=== PATIENT | female | born 1950 | race Caucasian/White ===

== ENCOUNTER 2016-10-14 10:05 | Outpatient (CLI) | payer MEDICARE, OTHER | END 2016-10-14 10:06 | disposition home or self-care (01) | DX: Z13.820 Encounter for screening for osteoporosis (principal); M85.89 Other specified disorders of bone density and structure, multiple sites; Z78.0 Asymptomatic menopausal state ==

== ENCOUNTER 2016-10-18 08:00 | Outpatient (CLI) | payer MEDICARE, OTHER | END 2016-10-18 08:01 | disposition home or self-care (01) | DX: Z01.812 Encounter for preprocedural laboratory examination (principal); Z79.899 Other long term (current) drug therapy ==

== ENCOUNTER 2016-10-25 12:41 | Outpatient (CLI) | payer MEDICARE, OTHER ==
[2016-10-25] MEDS ORDERED: IOPAMIDOL-300 100 ML VIAL IVP ONE (13:34)
== END 2016-10-25 12:42 | disposition home or self-care (01) ==
DX: R07.9 Chest pain, unspecified (principal); Z82.49 Family history of ischemic heart disease and other diseases of the circulatory system
CPT/HCPCS: 71275; 74175; Q9967

== ENCOUNTER 2017-10-20 08:00 | Outpatient (CLI) | payer MEDICARE, OTHER ==
[2017-10-20 12:34] LABS: BASOPHILS # (AUTO) 0.1 10^3/uL (0.0-0.1); BASOPHILS % (AUTO) 1.1 %; EOSINOPHILS # (AUTO) 0.3 10^3/uL (0.0-0.7); EOSINOPHILS % (AUTO) 6.3 %; HGB - HEMOGLOBIN 13.1 g/dL (12.0-16.0); LYMPHOCYTES # (AUTO) 2.5 10^3/uL (1.5-3.5); LYMPHOCYTES % (AUTO) 52.7 %; MEAN CORPUSCULAR HEMOGLOBIN 31.3 pg (27.0-31.0); MEAN CORPUSCULAR HGB CONC 34.1 g/dL (32.0-36.0); MEAN CORPUSCULAR VOLUME 91.7 fL (81.0-99.0); MEAN PLATELET VOLUME 8.7 fL (7.9-10.8); MONOCYTES # (AUTO) 0.3 10^3/uL (0.0-1.0); MONOCYTES % (AUTO) 6.7 %; NEUTROPHILS # (AUTO) 1.6 10^3/uL (1.5-6.6); NEUTROPHILS % (AUTO) 33.2 %; PLT - PLATELET COUNT 240 10^3/uL (130-450); RED BLOOD COUNT 4.19 10^6/uL (4.20-5.40); RED CELL DISTRIBUTION WIDTH 13.3 % (12.0-15.0); WHITE BLOOD COUNT 4.8 x10^3/uL (4.8-10.8)
[2017-10-20 12:53] LABS: ALBUMIN 4.2 g/dL (3.2-5.5); ALBUMIN/GLOBULIN RATIO 1.6 (1.0-2.2); BILIRUBIN,TOTAL 0.5 mg/dL (0.2-1.0); CALCIUM 8.8 mg/dL (8.5-10.3); CREATININE 0.7 mg/dL (0.4-1.0); TOTAL PROTEIN 6.8 g/dL (6.7-8.2)
[2017-10-20 13:18] LABS: HB2 TOTAL 13.9 g/dL; HEMOGLOBIN A1C 0.51 g/dL; HEMOGLOBIN A1C % 5.5 % (4.6-6.2)
[2017-10-21 11:51] LABS: HEPATITIS C ANTIBODY NON-REACTIVE (NON-REACTIVE)
== END 2017-10-20 08:01 | disposition home or self-care (01) ==
LOC: LAB.N 08:00
PROVIDERS: ATTEND Physician Assistant Medical
DX: E55.9 Vitamin D deficiency, unspecified (principal); Z79.899 Other long term (current) drug therapy; E11.9 Type 2 diabetes mellitus without complications; F41.9 Anxiety disorder, unspecified; Z11.59 Encounter for screening for other viral diseases
CPT/HCPCS: 36415; 80053; 82306; 83036; 84443; 85025; 86803

== ENCOUNTER 2018-10-02 13:07 | Outpatient (CLI) | payer MEDICARE, OTHER ==
[2018-10-02 14:07] LABS: BASOPHILS % (AUTO) 0.9 %; EOSINOPHILS # (AUTO) 0.3 10^3/uL (0.0-0.7); EOSINOPHILS % (AUTO) 5.4 %; HGB - HEMOGLOBIN 13.7 g/dL (12.0-16.0); LYMPHOCYTES # (AUTO) 2.4 10^3/uL (1.5-3.5); LYMPHOCYTES % (AUTO) 48.7 %; MEAN CORPUSCULAR HEMOGLOBIN 31.4 pg (27.0-31.0); MEAN CORPUSCULAR HGB CONC 34.2 g/dL (32.0-36.0); MEAN PLATELET VOLUME 9.1 fL (7.9-10.8); MONOCYTES # (AUTO) 0.3 10^3/uL (0.0-1.0); NEUTROPHILS # (AUTO) 1.9 10^3/uL (1.5-6.6); PLT - PLATELET COUNT 252 10^3/uL (130-450); RED BLOOD COUNT 4.37 10^6/uL (4.20-5.40); RED CELL DISTRIBUTION WIDTH 13.5 % (12.0-15.0)
[2018-10-02 14:24] LABS: ALBUMIN 4.4 g/dL (3.2-5.5); ALBUMIN/GLOBULIN RATIO 1.8 (1.0-2.2); ALKALINE PHOSPHATASE 67 IU/L (42-121); ALT ALANINE AMINOTRANSFERASE 19 IU/L (10-60); AST ASPARTATE AMINOTRANSFERASE 23 IU/L (10-42); BILIRUBIN,TOTAL 0.6 mg/dL (0.2-1.0); BUN - BLOOD UREA NITROGEN 13 mg/dL (6-20); CALCIUM 9.1 mg/dL (8.5-10.3); CARBON DIOXIDE - CO2 26 mmol/L (21-32); CHLORIDE 106 mmol/L (101-111); CHOL/HDL RATIO 3.3 (<4.4); CHOLESTEROL 221 mg/dL; CREATININE 0.6 mg/dL (0.4-1.0); GFR - MDRD 100 (>89); GLUCOSE 99 mg/dL (70-100); HDL CHOLESTEROL 68 mg/dL; LDL CHOLESTEROL,CALCULATED 140 mg/dL; LDL/HDL RATIO 2.1 (<4.4); SODIUM 141 mmol/L (135-145); TOTAL PROTEIN 6.9 g/dL (6.7-8.2); VLDL CHOLESTEROL 13 mg/dL
[2018-10-02 14:25] LABS: HB2 TOTAL 14.9 g/dL; HEMOGLOBIN A1C 0.56 g/dL; HEMOGLOBIN A1C % 5.6 % (4.6-6.2)
== END 2018-10-02 23:59 | disposition home or self-care (01) ==
LOC: LAB.N 13:07
PROVIDERS: ATTEND Physician Assistant Medical
DX: E55.9 Vitamin D deficiency, unspecified (principal); E78.2 Mixed hyperlipidemia; E11.9 Type 2 diabetes mellitus without complications; F41.9 Anxiety disorder, unspecified; Z79.899 Other long term (current) drug therapy
CPT/HCPCS: 36415; 80053; 80061; 82306; 83036; 83721; 84443; 85025

== ENCOUNTER 2021-08-19 10:57 | Outpatient (CLI) | payer MEDICARE, OTHER | END 2021-08-19 10:58 | disposition critical access hospital (66) | LOC: EMS 10:57 | DX: I46.9 Cardiac arrest, cause unspecified (principal) | CPT/HCPCS: A0425; A0433 ==

== ENCOUNTER 2021-08-19 11:17 | Emergency (ER) | payer MEDICARE, OTHER ==
[2021-08-19 11:34] LABS: BASOPHILS % (AUTO) 0.5 %; EOSINOPHILS # (AUTO) 0.1 10^3/uL (0.0-0.7); EOSINOPHILS % (AUTO) 1.3 %; HCT - HEMATOCRIT 37.4 % (37.0-47.0); HGB - HEMOGLOBIN 11.7 g/dL (12.0-16.0); LYMPHOCYTES # (AUTO) 3.3 10^3/uL (1.5-3.5); LYMPHOCYTES % (AUTO) 42.1 %; MEAN CORPUSCULAR HEMOGLOBIN 30.7 pg (27.0-31.0); MEAN CORPUSCULAR HGB CONC 31.3 g/dL (32.0-36.0); MEAN CORPUSCULAR VOLUME 98.2 fL (81.0-99.0); MEAN PLATELET VOLUME 10.3 fL (7.9-10.8); MONOCYTES # (AUTO) 0.3 10^3/uL (0.0-1.0); MONOCYTES % (AUTO) 3.3 %; NEUTROPHILS % (AUTO) 51.5 %; PLT - PLATELET COUNT 160 10^3/uL (130-450); RED BLOOD COUNT 3.81 10^6/uL (4.20-5.40); RED CELL DISTRIBUTION WIDTH 13.4 % (12.0-15.0); WHITE BLOOD COUNT 7.8 x10^3/uL (4.8-10.8)
[2021-08-19 11:40] LABS: INR 1.4 (0.8-1.2); PT - PROTHROMBIN TIME 15.4 secs (9.9-12.6)
[2021-08-19 11:47] LABS: ALBUMIN 2.4 g/dL (3.2-5.5); ALBUMIN/GLOBULIN RATIO 1.3 (1.0-2.2); ALKALINE PHOSPHATASE 53 IU/L (42-121); ALT ALANINE AMINOTRANSFERASE 201 IU/L (10-60); AST ASPARTATE AMINOTRANSFERASE 208 IU/L (10-42); BILIRUBIN,TOTAL 0.3 mg/dL (0.2-1.0); BUN - BLOOD UREA NITROGEN 13 mg/dL (6-20); CALCIUM 6.6 mg/dL (8.5-10.3); CARBON DIOXIDE - CO2 16 mmol/L (21-32); CHLORIDE 113 mmol/L (101-111); CREATININE 0.9 mg/dL (0.4-1.0); ETOH - ETHANOL < 5.0 mg/dL; GFR - MDRD 62 (>89); GLUCOSE 264 mg/dL (70-100); LIPASE 30 U/L (22-51); MAGNESIUM 1.8 mg/dL (1.7-2.8); POTASSIUM 3.1 mmol/L (3.5-5.0); SODIUM 141 mmol/L (135-145); TOTAL PROTEIN 4.2 g/dL (6.7-8.2)
[2021-08-19] MEDS ORDERED: IOVERSOL 320 100 ML VIAL IVP ONE (11:47)
[2021-08-19] MEDS ORDERED: EPINEPHrine ABBOJECT 1 MG/10 ML SYRINGE ONE (12:00)
[2021-08-19] MEDS ORDERED: POTASSIUM CHLOR 10 MEQ/100 ML 10 MEQ/100 ML BAG IV SCH (12:00)
--- NOTE | 2021-08-19 12:12 | ED Physician Documentation ---
PD HPI CPR - Stated complaint Stated Complaint: ROSC - History obtained from History obtained from: Family (), EMS - Additional information Additional information: Patient is 71-year-old female presenting to the emergency department with return of spontaneous circulation after witnessed collapse and cardiac arrest at home earlier this morning. EMS reports arrival on scene with with CPR ongoing. They report multiple rounds of CPR. ROSC was achieved initially after 2 rounds of epinephrine however was subsequently lost and CPR reinitiated. ROSC was reachieved after 3 additional epi's. 5 total doses of epinephrine were given in the field prior to arrival. . Patient is a past medical history significant for diabetes. reports that she became emotionally bereaved this morning well talking with him, specifically mentions that was recalling something specific about a traumatic event that occurred in her childhood prior to the collapse. Denies any previous cardiac history and his but is uncertain about the rest of her medical history. . Further history is limited by the acuity of the patient's condition. Review of Systems Unable to obtain: Intubated PD PAST MEDICAL HISTORY - Past Medical History Past Medical History: Yes Endocrine/Autoimmune: Type 2 diabetes - Allergies Allergies/Adverse Reactions: Allergies Allergy/AdvReac Type Severity Reaction Status Date / Time No Known Drug Allergies Allergy Verified 08/19/21 12:19 PD ED PE NORMAL - Vitals Vital signs reviewed: Yes - General General: Other (intubated) - HEENT HEENT: Atraumatic, Other (pupis 3mm, slugish bl) - Neck Neck: Supple, no meningeal sign, No JVD - Cardiac Cardiac: RRR, No murmur, No gallop - Respiratory Respiratory: Other (b/l ronchi) - Abdomen Abdomen: Normal bowel sounds - Female Female : Deferred - Back Back: No CVA TTP - Derm Derm: Normal color - Extremities Extremities: No deformity - Neuro Neuro: Other (CGS 3t, ) Results - Vitals Vitals: Vital Signs - 24 hr 08/19/21 08/19/21 11:15 12:11 Temperature 35.9 C L Heart Rate 90 100 Respiratory 16 Rate Blood Pressure 106/71 O2 Saturation 99 Oxygen O2 Source Ambu bag - Labs Labs: Laboratory Tests 08/19/21 08/19/21 08/19/21 11:23 11:23 11:23 WBC 7.8 RBC 3.81 L Hgb 11.7 L Hct 37.4 MCV 98.2 MCH 30.7 MCHC 31.3 L RDW 13.4 Plt Count 160 MPV 10.3 Neut # (Auto) 4.0 Lymph # (Auto) 3.3 Esmeralda # (Auto) 0.3 Eos # (Auto) 0.1 Baso # (Auto) 0.0 Absolute Nucleated RBC 0.00 Nucleated RBC % 0.0 PT 15.4 H INR 1.4 H Bld Gas Analysis Time Sample Site ABG pH ABG pCO2 ABG pO2 ABG HCO3 ABG Total CO2 ABG O2 Saturation ABG Base Excess Cesar Test Respiration Rate O2 Delivery Device Vent Mode FiO2 Tidal Volume PEEP Sodium 141 Potassium 3.1 L Chloride 113 H Carbon Dioxide 16 L Anion Gap 12.0 BUN 13 Creatinine 0.9 Estimated GFR (MDRD) 62 L Glucose 264 H Lactic Acid Calcium 6.6 L Magnesium 1.8 Total Bilirubin 0.3 AST 208 H ALT 201 H Alkaline Phosphatase 53 CK-MB (CK-2) B-Natriuretic Peptide Total Protein 4.2 L Albumin 2.4 L Globulin 1.8 L Albumin/Globulin Ratio 1.3 Lipase 30 TSH Urine Color Urine Clarity Urine pH Ur Specific [place] Urine Protein Urine Glucose (UA) Urine Ketones Urine Occult Blood Urine Nitrite Urine Bilirubin Urine Urobilinogen Ur Leukocyte Esterase Ur Microscopic Review Urine Culture Comments Nasal Adenovirus (PCR) Nasal B. parapertussis DNA (PCR) Nasal Coronavir 229E PCR Nasal Coronavir HKU1 PCR Nasal Coronavir NL63 PCR Nasal Coronavir OC43 PCR Nasal Enterovir/Rhinovir PCR Nasal Influenza B PCR Nasal Influenza A PCR Nasal Parainfluen 1 PCR Nasal Parainfluen 2 PCR Nasal Parainfluen 3 PCR Nasal Parainfluen 4 PCR Nasal RSV (PCR) Nasal B.pertussis DNA PCR Nasal C.pneumoniae (PCR) Jorje Human Metapneumo PCR Nasal M.pneumoniae (PCR) Nasal SARS-CoV-2 (PCR) Urine Opiates Screen Ur Oxycodone Screen Urine Methadone Screen Ur Propoxyphene Screen Ur Barbiturates Screen Ur Tricyclics Screen Ur Phencyclidine Scrn Ur Amphetamine Screen U Methamphetamines Scrn U Benzodiazepines Scrn Urine Cocaine Screen U Cannabinoids Screen Ethyl Alcohol < 5.0 08/19/21 08/19/21 08/19/21 11:23 11:23 11:23 WBC RBC Hgb Hct MCV MCH MCHC RDW Plt Count MPV Neut # (Auto) Lymph # (Auto) Esmeralda # (Auto) Eos # (Auto) Baso # (Auto) Absolute Nucleated RBC Nucleated RBC % PT INR Bld Gas Analysis Time Sample Site ABG pH ABG pCO2 ABG pO2 ABG HCO3 ABG Total CO2 ABG O2 Saturation ABG Base Excess Cesar Test Respiration Rate O2 Delivery Device Vent Mode FiO2 Tidal Volume PEEP Sodium Potassium Chloride Carbon Dioxide Anion Gap BUN Creatinine Estimated GFR (MDRD) Glucose Lactic Acid 6.4 H* Calcium Magnesium Total Bilirubin AST ALT Alkaline Phosphatase CK-MB (CK-2) 5.2 B-Natriuretic Peptide 133 H Total Protein Albumin Globulin Albumin/Globulin Ratio Lipase TSH Urine Color Urine Clarity Urine pH Ur Specific [place] Urine Protein Urine Glucose (UA) Urine Ketones Urine Occult Blood Urine Nitrite Urine Bilirubin Urine Urobilinogen Ur Leukocyte Esterase Ur Microscopic Review Urine Culture Comments Nasal Adenovirus (PCR) Nasal B. parapertussis DNA (PCR) Nasal Coronavir 229E PCR Nasal Coronavir HKU1 PCR Nasal Coronavir NL63 PCR Nasal Coronavir OC43 PCR Nasal Enterovir/Rhinovir PCR Nasal Influenza B PCR Nasal Influenza A PCR Nasal Parainfluen 1 PCR Nasal Parainfluen 2 PCR Nasal Parainfluen 3 PCR Nasal Parainfluen 4 PCR Nasal RSV (PCR) Nasal B.pertussis DNA PCR Nasal C.pneumoniae (PCR) Jorje Human Metapneumo PCR Nasal M.pneumoniae (PCR) Nasal SARS-CoV-2 (PCR) Urine Opiates Screen Ur Oxycodone Screen Urine Methadone Screen Ur Propoxyphene Screen Ur Barbiturates Screen Ur Tricyclics Screen Ur Phencyclidine Scrn Ur Amphetamine Screen U Methamphetamines Scrn U Benzodiazepines Scrn Urine Cocaine Screen U Cannabinoids Screen Ethyl Alcohol 08/19/21 08/19/21 08/19/21 11:23 12:00 12:27 WBC RBC Hgb Hct MCV MCH MCHC RDW Plt Count MPV Neut # (Auto) Lymph # (Auto) Esmeralda # (Auto) Eos # (Auto) Baso # (Auto) Absolute Nucleated RBC Nucleated RBC % PT INR Bld Gas Analysis Time 1203 Sample Site RIGHT RADIAL ABG pH 7.17 L* ABG pCO2 42 ABG pO2 84 ABG HCO3 14.8 L ABG Total CO2 16.1 L ABG O2 Saturation 94 ABG Base Excess -13.1 L Cesar Test POSITIVE Respiration Rate 24 O2 Delivery Device VENTILATOR Vent Mode ASSIST/CONTROL FiO2 100.00 Tidal Volume 400 PEEP 5 Sodium Potassium Chloride Carbon Dioxide Anion Gap BUN Creatinine Estimated GFR (MDRD) Glucose Lactic Acid Calcium Magnesium Total Bilirubin AST ALT Alkaline Phosphatase CK-MB (CK-2) B-Natriuretic Peptide Total Protein Albumin Globulin Albumin/Globulin Ratio Lipase TSH 4.35 Urine Color Urine Clarity Urine pH Ur Specific [place] Urine Protein Urine Glucose (UA) Urine Ketones Urine Occult Blood Urine Nitrite Urine Bilirubin Urine Urobilinogen Ur Leukocyte Esterase Ur Microscopic Review Urine Culture Comments Nasal Adenovirus (PCR) NOT DETECTED Nasal B. parapertussis DNA (PCR) NOT DETECTED Nasal Coronavir 229E PCR NOT DETECTED Nasal Coronavir HKU1 PCR NOT DETECTED Nasal Coronavir NL63 PCR NOT DETECTED Nasal Coronavir OC43 PCR NOT DETECTED Nasal Enterovir/Rhinovir PCR NOT DETECTED Nasal Influenza B PCR NOT DETECTED Nasal Influenza A PCR NOT DETECTED Nasal Parainfluen 1 PCR NOT DETECTED Nasal Parainfluen 2 PCR NOT DETECTED Nasal Parainfluen 3 PCR NOT DETECTED Nasal Parainfluen 4 PCR NOT DETECTED Nasal RSV (PCR) NOT DETECTED Nasal B.pertussis DNA PCR NOT DETECTED Nasal C.pneumoniae (PCR) NOT DETECTED Jorje Human Metapneumo PCR NOT DETECTED Nasal M.pneumoniae (PCR) NOT DETECTED Nasal SARS-CoV-2 (PCR) NOT DETECTED Urine Opiates Screen Ur Oxycodone Screen Urine Methadone Screen Ur Propoxyphene Screen Ur Barbiturates Screen Ur Tricyclics Screen Ur Phencyclidine Scrn Ur Amphetamine Screen U Methamphetamines Scrn U Benzodiazepines Scrn Urine Cocaine Screen U Cannabinoids Screen Ethyl Alcohol 08/19/21 08/19/21 12:28 12:28 WBC RBC Hgb Hct MCV MCH MCHC RDW Plt Count MPV Neut # (Auto) Lymph # (Auto) Esmeralda # (Auto) Eos # (Auto) Baso # (Auto) Absolute Nucleated RBC Nucleated RBC % PT INR Bld Gas Analysis Time Sample Site ABG pH ABG pCO2 ABG pO2 ABG HCO3 ABG Total CO2 ABG O2 Saturation ABG Base Excess Cesar Test Respiration Rate O2 Delivery Device Vent Mode FiO2 Tidal Volume PEEP Sodium Potassium Chloride Carbon Dioxide Anion Gap BUN Creatinine Estimated GFR (MDRD) Glucose Lactic Acid Calcium Magnesium Total Bilirubin AST ALT Alkaline Phosphatase CK-MB (CK-2) B-Natriuretic Peptide Total Protein Albumin Globulin Albumin/Globulin Ratio Lipase TSH Urine Color LIGHT YELLOW Urine Clarity CLEAR Urine pH 6.0 Ur Specific [place] 1.015 Urine Protein NEGATIVE Urine Glucose (UA) 250 H Urine Ketones NEGATIVE Urine Occult Blood TRACE-INTA Urine Nitrite NEGATIVE Urine Bilirubin NEGATIVE Urine Urobilinogen 0.2 (NORMAL) Ur Leukocyte Esterase NEGATIVE Ur Microscopic Review NOT INDICATED Urine Culture Comments NOT INDICATED Nasal Adenovirus (PCR) Nasal B. parapertussis DNA (PCR) Nasal Coronavir 229E PCR Nasal Coronavir HKU1 PCR Nasal Coronavir NL63 PCR Nasal Coronavir OC43 PCR Nasal Enterovir/Rhinovir PCR Nasal Influenza B PCR Nasal Influenza A PCR Nasal Parainfluen 1 PCR Nasal Parainfluen 2 PCR Nasal Parainfluen 3 PCR Nasal Parainfluen 4 PCR Nasal RSV (PCR) Nasal B.pertussis DNA PCR Nasal C.pneumoniae (PCR) Jorje Human Metapneumo PCR Nasal M.pneumoniae (PCR) Nasal SARS-CoV-2 (PCR) Urine Opiates Screen NEGATIVE Ur Oxycodone Screen NEGATIVE Urine Methadone Screen NEGATIVE Ur Propoxyphene Screen NEGATIVE Ur Barbiturates Screen NEGATIVE Ur Tricyclics Screen NEGATIVE Ur Phencyclidine Scrn NEGATIVE Ur Amphetamine Screen NEGATIVE U Methamphetamines Scrn NEGATIVE U Benzodiazepines Scrn NEGATIVE Urine Cocaine Screen NEGATIVE U Cannabinoids Screen NEGATIVE Ethyl Alcohol Procedures - Central Line Central Line Preparation: Consent Obtained (Obtained from patient's ), Ultrasound used Central line location: Right Femoral Central line type: Triple lumen Central line aftercare: Chlorhexidine disc placed, Secured, No complications, Pt tolerated well PD MEDICAL DECISION MAKING - ED course Complexity details: reviewed old records, reviewed results, re-evaluated patient, d/w family, d/w healthcare network pricing consultant ED course: Patient is 71-year-old female with past medical significant for diabetes presenting to the emergency department after return of spontaneous circulation status post witnessed collapse and cardiac arrest at home. EMS reported ACLS protocol had been initiated by patient's at the direction of 911 and have been ongoing for approximately 5 minutes prior to their arrival. They report initiating ACLS protocol, with return of spontaneous circulation after 2 rounds of epinephrine. Circulation was subsequently lost however it was restored after an additional 3 rounds of epinephrine. They reported 5 total doses of epinephrine given in the emergency department. They report rhythm checks demonstrating EAA or otherwise nonshockable rhythms. Is intubated in the field. Patient received 2 L IV hydration prior to arrival. On arrival to the emergency department patient was [id number] mcg of push dose epinephrine was administered followed by the initiation of a continuous infusion of Levophed. Triple-lumen central line was placed as outlined in procedure note above. EKG obtained was negative for indications of acute cardiac ischemia or dysrhythmia. Labs obtained demonstrated significant leukocytosis as well as mild hypokalemia. Comprehensive imaging showed a subdural hemorrhage with intraventricular bleeding and cerebral edema. Imaging of her chest, abdomen and pelvis demonstrated significant airspace opacification concerning for underlying pneumonia. Her Covid swab was negative. was present at bedside denied any recent illness. Denies any history of chronic anticoagulation. Upon return from the CT scan patient began to demonstrate decerebrate posturing in her upper extremities and her pupils were noted to be now 2 mm and fixed. I did order for hypertonic saline. Case was discussed with neurosurgery and the emergency department at [facility]. In conjunction with neurosurgery patient was given 1 g Keppra load in the ED. Additionally ordered with an initial dose of Zosyn however while in the emergency department there was an adequate time in order to cover with a more complete broad-spectrum antibiotics for opacifications in her lung. It has many conversations with the patient's who indicated that in a situation like this she would want at least a few days of full treatment prior to any decision to withdraw or limit care. She was flown from our facility to [facility] in medically critical condition. Departure - Departure Disposition: 02 Transfer Acute Care Hosp Clinical Impression: SAH (subarachnoid hemorrhage), Cardiac arrest Condition: Critical Discharge Date/Time: 08/19/21 13:55
--- NOTE | 2021-08-19 12:12 | XRAY Report ---
PROCEDURE: Chest 1 View X-Ray INDICATIONS: ROSC TECHNIQUE: One view of the chest was acquired. COMPARISON: CT chest 10/25/2016 FINDINGS: Surgical changes and devices: Endotracheal tube is seen in satisfactory position with tip approximat jayjay 4 cm above the roxy. Defibrillator pads are present. Lungs and pleura: Diffuse airspace opacities are seen throughout the mid to upper lung zones bilatera lly. No definite pleural effusion or pneumothorax is seen on this supine image. Mediastinum: Mediastinal contours appear normal. Heart size is normal. Bones and chest wall: No suspicious bony lesions. Overlying soft tissues appear unremarkable. IMPRESSION: 1.Endotracheal tube in satisfactory position. 2.Diffuse bilateral mid to upper lung zone opacities may represent pulmonary edema, hemorrhage, or pn eumonia. 3.No definite pleural effusion or pneumothorax. Reviewed by: Charles Root MD on 08/19/2021 12:11 PM PST Approved by: Charles Root MD on 08/19/2021 12:11 PM PST Station ID: [id number]
[2021-08-19 12:13] LABS: ABG BASE EXCESS -13.1 mmol/L (-2.0-3.0); ABG HCO3 14.8 mmol/L (22.0-26.0); ABG OXYGEN SATURATION 94 % (94-98); ABG PCO2 42 mmHg (34-45); ABG PO2 84 mmHg (80-100); ABG TCO2 16.1 MMOL/L (21.0-29.0); ALLEN TEST POSITIVE
[2021-08-19 12:14] LABS: ABG MODE OF VENTILATION ASSIST/CONTROL; ABG PH 7.17 (7.35-7.45); ABG RESPIRATORY RATE 24 b/min
[2021-08-19 12:19] VITALS: BP 106/71
[2021-08-19] MEDS ORDERED: PROPOFOL 1000 MG/100 ML 1,000 MG/100 ML BOTTLE IV ONE (12:25)
[2021-08-19 12:41] LABS: BILIRUBIN,URINE NEGATIVE (NEGATIVE); GLUCOSE, URINE (UA) 250 mg/dL (NEGATIVE); KETONES,URINE (UA) NEGATIVE (NEGATIVE); LEUKOCYTE ESTERASE, URINE NEGATIVE (NEGATIVE); NITRITE,URINE NEGATIVE (NEGATIVE); OCCULT BLOOD,URINE TRACE-INTA (NEGATIVE); PROTEIN,URINE NEGATIVE (NEGATIVE); UROBILINOGEN,URINE 0.2 (NORMAL) E.U./dL (NORMAL)
[2021-08-19 12:44] LABS: CLARITY,URINE CLEAR (CLEAR)
[2021-08-19 12:46] LABS: MUDS CUTOFF CONCENTRATIONS CUTOFF CONC BELOW:
[2021-08-19 12:51] LABS: AMPHETAMINE SCREEN,URINE NEGATIVE (NEGATIVE); BARBITURATE SCREEN,UR NEGATIVE (NEGATIVE); BENZODIAZEPINES SCREEN, URINE NEGATIVE (NEGATIVE); COCAINE SCREEN URINE NEGATIVE (NEGATIVE); METHADONE SCREEN, URINE NEGATIVE (NEGATIVE); METHAMPHETAMINES SCREEN, URINE NEGATIVE (NEGATIVE); OPIATE SCREEN, URINE NEGATIVE (NEGATIVE); OXYCODONE SCREEN, URINE NEGATIVE (NEGATIVE); PROPOXYPHENE SCREEN, URINE NEGATIVE (NEGATIVE); THC CANNABINOID SCREEN, URINE NEGATIVE (NEGATIVE); TRICYCLIC ANTIDEPRESSANT,URINE NEGATIVE (NEGATIVE)
[2021-08-19] MEDS ORDERED: PIPERACILLIN/TAZOBACTAM 4.5 GM in SODIUM CHLORIDE 0.9% MINIBAG 100 ML IV STA (13:19)
--- NOTE | 2021-08-19 13:29 | CT Report ---
PROCEDURE: Abdomen/Pelvis W INDICATIONS: cardiac arrest CONTRAST: IV CONTRAST: Optiray 320 ml: 100 PO CONTRAST: *NO PO CONTRAST TECHNIQUE: After the administration of IV contrast, 5 mm thick sections acquired from the diaphragms to the symp hysis. 5 mm thick coronal and sagittal reformats were acquired. For radiation dose reduction, the f ollowing was used: automated exposure control, adjustment of mA and/or kV according to patient size. COMPARISON: None. FINDINGS: Image quality: Excellent. ABDOMEN: Lung bases: Moderate deep tendon bibasilar pulmonary space opacities. Heart size is normal. Solid organs: Liver and spleen are normal in size and enhancement. Gallbladder is surgically absent Biliary system is non dilated. Pancreas enhances normally. No adrenal nodules. Kidneys demonstra te normal size and enhancement, without hydronephrosis. Peritoneum and bowel: Bowel loops demonstrate normal wall thickness and caliber. No free fluid or a ir. Nodes and vessels: No retroperitoneal or mesenteric adenopathy by size criteria. Aorta and inferior vena cava are normal in size. Miscellaneous: No ventral hernias. PELVIS: Genitourinary: Urinary bladder is decompressed. Hunt catheter within its lumen is present. Miscellaneous: No inguinal hernias or adenopathy. Bones: No suspicious bony lesions. No vertebral body compression fractures. IMPRESSION: 1. Bilateral pneumonia. 2. No acute process within the abdomen, nor pelvis. Reviewed by: Sue Luther MD on 08/19/2021 1:27 PM PST Approved by: Sue Luther MD on 08/19/2021 1:27 PM PST Station ID: [id number]
--- NOTE | 2021-08-19 13:29 | CT Report ---
PROCEDURE: HEAD WO INDICATIONS: Seizure TECHNIQUE: Noncontrast 4.5 mm thick angled axial sections acquired from the foramen magnum to the vertex. For r adiation dose reduction, the following was used: automated exposure control, adjustment of mA and/or kV according to patient size. COMPARISON: None. FINDINGS: Image quality: Excellent. CSF spaces: Extensive subarachnoid hemorrhage with intraventricular hemorrhage also present. Findings are consistent with a probable ruptured cerebral aneurysm. The suprasellar cistern is filled with he morrhage. This may potentially represent a ruptured basilar artery aneurysm. Ventricles are midline. Brain: No midline shift. No intracranial masses or hemorrhage. Diffuse low density in the cerebrum and posterior fossa suggests possible diffuse generalized edema. Skull and face: Calvarium and visualized facial bones are intact, without suspicious lesions. Sinuses: Visualized sinuses and mastoids are clear. IMPRESSION: 1. Findings are consistent with a probable ruptured cerebral aneurysm with extensive subarachnoid and intraventricular hemorrhage. 2. Question diffuse cerebral and posterior fossa edema. Above discussed with SAIRA RAMIREZ at the time of dictation on 08/19/2021 at 1321 hours. Reviewed by: Maurice Morales MD on 08/19/2021 1:28 PM PST Approved by: Maurice Morales MD on 08/19/2021 1:28 PM PST Station ID: [id number]
--- NOTE | 2021-08-19 13:32 | CT Report ---
PROCEDURE: CERVICAL SPINE WO INDICATIONS: Fall, seizure, cardiac arrest TECHNIQUE: Noncontrast 3 mm thick sections acquired from the skull base to the T4 level. Sagittal and coronal r eformats were then constructed. For radiation dose reduction, the following was used: automated exp osure control, adjustment of mA and/or kV according to patient size. COMPARISON: CT had which demonstrates extensive subarachnoid hemorrhage and intraventricular hemorrh age severe cervical spondylosis. Reversal of normal lordotic curve of the cervical spine. Mild daljit listhesis of C3 on C4 is likely degenerative in nature. Multilevel facet arthropathy. Multilevel unco vertebral joint hypertrophy. Multilevel foraminal narrowing. FINDINGS: Image quality: Excellent. Bones: No fractures or dislocations. Visualized superior ribs are intact. Soft tissues: Prevertebral soft tissues are normal in thickness. No paravertebral hematomas. No ap ical pneumothoraces. Extensive bilateral airspace consolidation. ET tube in place. IMPRESSION: 1. Subarachnoid hemorrhage seen on CT head (ER physician is aware). 2. Severe cervical spondylitic change. 3. No evidence acute cervical fracture or dislocation. 3. Extensive pulmonary edema. Reviewed by: Maurice Morales MD on 08/19/2021 1:31 PM PST Approved by: Maurice Morales MD on 08/19/2021 1:31 PM PST Station ID: [id number]
[2021-08-19 13:34] LABS: CORONAVIRUS 229E-RESP PCR NOT DETECTED; CORONAVIRUS HKU1-RESP PCR NOT DETECTED; CORONAVIRUS NL63-RESP PCR NOT DETECTED; CORONAVIRUS OC43-RESP PCR NOT DETECTED; HUMAN METAPNEUMOVIRUS NOT DETECTED; INFLUENZA A- RESP PCR PANEL NOT DETECTED; RHINOVIRUS/ENTEROVIRUS NOT DETECTED; SARS-CoV-2 -RESP PCR PANEL NOT DETECTED
[2021-08-19 13:35] LABS: B. PARAPERTUSSIS- RESP PCR PAN NOT DETECTED; B. PERTUSSIS- RESP PCR PANEL NOT DETECTED; C. PNEUMONIAE- RESP PCR PANEL NOT DETECTED; INFLUENZA B - RESP PCR PANEL NOT DETECTED; M. PNEUMONIAE- RESP PCR PANEL NOT DETECTED; PARAINFLUENZA VIRUS 1 NOT DETECTED; PARAINFLUENZA VIRUS 2 NOT DETECTED; PARAINFLUENZA VIRUS 3 NOT DETECTED; PARAINFLUENZA VIRUS 4 NOT DETECTED; RSV- RESP PCR PANEL NOT DETECTED
[2021-08-19] MEDS ORDERED: levETIRAcetam INJ 1,000 MG in SODIUM CHLORIDE 0.9% 100ML 100 ML IV STA (13:36)
--- NOTE | 2021-08-19 13:41 | CT Report ---
PROCEDURE: CHEST W INDICATIONS: Cardiac Arrest CONTRAST: IV CONTRAST: Optiray 320 ml: 100 PO CONTRAST: *NO PO CONTRAST TECHNIQUE: After the administration of intravenous contrast, 1 mm axial images were acquired from the pulmonary apices through the posterior costophrenic angles. Axial 5 mm soft tissue kernel reconstructions were performed as well as 8 mm axial MIP and coronal and sagittal 5 mm reformations. For radiation dose reduction, the following was used: automated exposure control, adjustment of mA and/or kV according to patient size. COMPARISON: Chest x-ray 08/19/2021, CT chest 10/25/2016 FINDINGS: Image quality: Excellent. Lungs and pleura: There is diffuse appearance of patchy and consolidative opacities within the lungs most severe in the upper as well as superior aspect of the lower lobes. Mediastinum: Heart size is normal. No pericardial effusion. No mediastinal or hilar adenopathy by size criteria. Thoracic aorta and central pulmonary arteries are normal in size. Esophagus is jovani l in caliber. No hiatal hernia. Endotracheal tube is present approximately 5.4 cm superior to the ca owen. Bones and chest wall: No suspicious bony lesions. No vertebral body compression fractures. No axil alisson or supraclavicular adenopathy by size criteria. The thyroid is normal in size and there are no incidental findings.. Abdomen: Visualized upper abdominal solid organs appear normal. Upper abdominal bowel loops are nor mal in caliber. IMPRESSION: 1. Extensive patchy and confluent consolidative opacities within the lungs as above most consistent w ith pneumonia. CLINICAL RECOMMENDATION STATEMENTS: In patients <35 years with an ITN detected on CT, MRI, or extrathyroidal ultrasound, the Committee re commends further evaluation with dedicated thyroid ultrasound if the nodule is "e1 cm and has no susp icious imaging features, and if the patient has normal life expectancy. In patients "e35 years with an ITN detected on CT, MRI, or extrathyroidal ultrasound, the Committee r ecommends further evaluation with dedicated thyroid ultrasound if the nodule is "e1.5 cm and has no s uspicious imaging features, and if the patient has normal life expectancy. (ACR, 2014) Reviewed by: Lizet Bang MD on 08/19/2021 1:40 PM PST Approved by: Lizet Bang MD on 08/19/2021 1:40 PM PST Station ID: [id number]
[2021-08-19] MEDS ORDERED: SODIUM CHLORIDE 3% HYPERTONIC 500 ML IV SCH (14:00)
[2021-08-24] MEDS ORDERED: IOVERSOL 320 100 ML VIAL IVP ONE (07:26)
== END 2021-08-19 13:55 | disposition short-term general hospital (02) ==
LOC: EDUNIT# → ED 11:17
DX: I60.9 Nontraumatic subarachnoid hemorrhage, unspecified (principal); I61.5 Nontraumatic intracerebral hemorrhage, intraventricular; R55 Syncope and collapse; I46.9 Cardiac arrest, cause unspecified; I95.9 Hypotension, unspecified; J18.9 Pneumonia, unspecified organism; E87.6 Hypokalemia; E11.9 Type 2 diabetes mellitus without complications; M47.812 Spondylosis without myelopathy or radiculopathy, cervical region; Z20.822 Contact with and (suspected) exposure to COVID-19
CPT/HCPCS: 36415; 36556; 36600; 70450; 71045; 71260; 72125; 74177; 80053; 80306; 81003; 82553; 82803; 83605; 83690; 83735; 83880; 84443; 85025; 85610; 87631; 93005; 96374; 96375; 99281; 99285; G0480; Q9967; 0202U; 80320; 81001; 87040; 87086; 94770